=== PATIENT | female | born 1995 | race Caucasian/White ===

== ENCOUNTER 2017-06-28 10:52 | Inpatient (IN) ==
[2017-06-28 11:32] LABS: Basophils % 0.3 %; Eosinophils # 0.1 K/mcL (0.0-0.6); Eosinophils % 0.9 %; Hematocrit 32.4 % (35.3-44.9); Immature Granulocytes % 0.8 % (0-4); Lymphocytes # 1.8 K/mcL (0.6-4.6); Lymphocytes % 14.9 %; Mean Corpuscular Hemoglobin 30.6 pg (28.0-33.3); Mean Platelet Volume 9.2 fL (9.4-12.4); Monocytes # 0.7 K/mcL (0.0-1.3); Monocytes % 5.5 %; Neutrophils # 9.3 K/mcL (1.6-8.9); Platelet Count 280 K/mcL (140-400); Segmented Neutrophils % 77.6 %
[2017-06-28 11:47] LABS: Alanine Aminotransferase 18 Units/L (0-55); Aspartate Amino Transferase 22 Units/L (5-34); BUN/Creatinine Ratio 6 (6-26); Lactate Dehydrogenase 207 Units/L (159-327); Uric Acid 3.9 mg/dL (2.6-6.0); eGFR For African Americans > 60 (> 60); eGFR For Non-African Americans > 60 (> 60)
--- NOTE | 2017-06-28 11:48 | OB/GYN History & Physical ---
Date of Encounter: 06/28/17 Time of Encounter: 11:29 Assessment and Plan (1) 38 weeks gestation of Current visit: Yes Status: Acute (2) Elevated blood pressure affecting in third trimester, antepartum Current visit: Yes Status: Acute Repeat BP at 153/108. Gestational HTN vs. Preeclampsia. Discussed with Dr. Alvarenga Patient will be admitted for induction of labor, Dr. Alvarenga states do not treat elevated BP at this time due to not being in severe range. . - PIH labs - Protein/creatinine ratio - UDS - UA - clear liquids Induction with cytotec PO and pagan balloon, Epidural as desired Anticipate (3) Decreased movement during Current visit: Yes Status: Acute tracing reactive baseline 140/ moderate/+accels/-decels Qualifiers: Fetus number: single or unspecified fetus Trimester: third trimester Qualified Code(s): O36.8130 - Decreased movements, third trimester, not applicable or unspecified History of Present Illness Chief complaint: Elevated blood pressure HPI: Ms. Jain is a 22 year old female at 38 2/7 weeks gestation with a PMH of THC use during and asthma that presents for elevated BP. Patient had a BP of 158/118 at clinic earlier today. She denies any WETZEL or vision changes. She says that she hasn't been able to feel her fetus move well for the past 2 days. She denies any vaginal fluid leakage or bleeding. She denies any regular contractions but she notes that she has been having bilateral lower back pain for the past 2 days. She rates the pain as a 5/10 on the pain scale and describes it as intermittent. She also admits to epigastric pain for the past 2 weeks that last for 3 minutes, not positionally related, non-radiating, and pressure like in quality. She says the pain is worse when she takes deep breaths. She currently admits to nausea but denies any vomiting. She denies any fever, chills, dysuria, or diarrhea . Complains of RUQ tenderness with palpation GBS: negative HepBSAg: non-reactive (12/30/16) HIV Ag/Ab: non-reactive T. Pallidum Ab: negative Rubella Ab: positive Varicella Ab: positive Blood Type: A+ All other labs normal. Past Med Surg Social Fam HX - Past Medical History Medical history: non-contributory - Social History Smoking Status: Never smoker Smokeless Tobacco Status: No Alcohol use: none Obstetrical History - Pregnancies : 1 Para: 0 Term: 0 : 0 Ab's: 0 Livin Medications and Allergies Tiki-D 24 Hour Tablet 11/09/16 [History] Valacyclovir HCl [Valtrex] 1,000 mg PO Q12H #20 tab 11/09/16 [Rx] Promethazine 06/13/17 [History] 3 Allergy/AdvReac Type Severity Reaction Status Date / Time nitrofurantoin Allergy Gastrointestinal Verified 06/13/17 11:47 [From Macrobid] Upset doxacicyln Allergy Rash Uncoded 11/09/16 15:01 Exam - Vital Signs Vital signs: BP: 153/108 HR: 99 FHR: 138 [place]: 33 - Constitutional Constitutional: well developed, well nourished, no acute distress, average body habitus - Neck Neck exam: full ROM - Lungs Respiratory exam: CTAB, wheezes (wheezes clear with cough. ) - Cardiovascular Cardiovascular exam: RRR, +S1, +S2 - Abdomen Abdomen: Present: bowel sounds normal, gravid Abdomen detail: right upper quadrant: tenderness, right lower quadrant: tenderness - Extremities Extremities exam: full ROM, normal capillary refill, normal inspection, radial pulses palpable and symmetrical Deep Tendon Reflex Grade: 2+ Normal - Cervix Dilation: 1 - Comments Comments: Pedal pulses intact and symmetrical bilaterally. Results Result Diagrams: 06/28/17 11:23 06/28/17 11:23 Abnormal lab results WBC 12.0 K/mcL (4.3-11.1) H 06/28/17 11:23 RBC 3.60 M/mcL (3.82-4.97) L 06/28/17 11:23 Hgb 11.0 g/dL (11.5-15.4) L 06/28/17 11:23 Hct 32.4 % (35.3-44.9) L 06/28/17 11:23 MPV 9.2 fL (9.4-12.4) L 06/28/17 11:23 Neutrophils # 9.3 K/mcL (1.6-8.9) H 06/28/17 11:23 All other labs normal. - VTE Reasons for not Prescribing Prophylaxis: Treatment not Indicated - Low risk for VTE
[2017-06-28 11:49] LABS: Blood Urea Nitrogen 4 mg/dL (7-20)
[2017-06-28] MEDS ORDERED: miSOPROStol 25 MCG TABLET PO PRN (11:58)
[2017-06-28 12:20] LABS: Protein/Creatinine Ratio,Urine 0.22 mg/mg (0-0.20)
[2017-06-28 12:21] LABS: Amphetamine Screen,Urine Negative ng/mL (Cutoff=1000); Barbiturate Screen,Urine Negative ng/mL (Cutoff=200); Benzodiazepines Screen,Urine Negative ng/mL (Cutoff=200); Cannabinoid Screen,Urine Positive ng/mL (Cutoff = 50); Cocaine Screen,Urine Negative ng/mL (Cutoff= 300); Opiate Screen,Urine Negative ng/mL (Cutoff=300); Phencyclidine Screen,Urine Negative ng/mL (Cutoff=25)
[2017-06-28] MEDS ORDERED: Naloxone 0.4 MG/ML INJ IVP PRN (12:41)
[2017-06-28] MEDS ORDERED: Famotidine 20 MG/2 ML VIAL IVP PRN (12:41)
[2017-06-28] MEDS ORDERED: Ondansetron 4 MG/2 ML VIAL IVP PRN (12:41)
[2017-06-28] MEDS ORDERED: Ringers Solution, Lactated 1,000 ML IVC SCH (12:45)
--- NOTE | 2017-06-28 14:47 | OB Labor Progress Note ---
Date of Encounter: 06/28/17 Time of Encounter: 14:44 Labor Progress Note - Vital Signs Vital Signs: Last BP 148/75 - Heart Tones Heart Tones: 130/moderate/+accels/-decels - [place]: Pt states feels cramping, irritability traced - Plan Plan: Continue current management BP stable PIH labs negative Anticipate
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
[2017-06-28] MEDS ORDERED: Epidural Premix (fent/bupiv) 110 ML EP ONE (16:13)
[2017-06-28] MEDS: *HR* Nalbuphine 20 MG/ML AMPUL IVP PRN ×2 (17:30→19:58)
--- NOTE | 2017-06-28 20:03 | OB Labor Progress Note ---
Date of Encounter: 06/28/17 Time of Encounter: 19:59 Labor Progress Note - Subjective Subjective: 143/81 - Vital Signs Vital Signs: 143/81 - Cervix Cervix: 5/75/ per RN - Heart Tones Heart Tones: 120/moderate/no accels/no decels - [place]: q1-2 - Interventions Interventions: iUPC placed without difficulty nubain. desires epidural - Plan Plan: Obtain epidrual Start pitocin per policy Anticpate
[2017-06-28] MEDS ORDERED: EPHEDrine 50 MG/ML VIAL ONE (21:24)
--- NOTE | 2017-06-28 21:38 | Anesthesia Procedures ---
Date of Encounter: 06/28/17 Time of Encounter: 21:09 Procedures: Anesthesia - Epidural/Spinal Patient ID/Chart reviewed: Yes Patient examined: Yes OB Eval: Gestational age: term OB Eval: : 1 OB Eval: Dilated at (cm): 5 OB Eval: Contractions: Non-stressed pattern Consent Obtained: Yes Supplemental Oxygen: None/Room Air Site Prep: Aseptic Technique, Sterile prep and drape, 0.5% Chlorhexidine/Alcohol Patient position: upright Local Anesthetic: Lidocaine 1% Amount of Local Anesthetic used: 2 Touhy Needle Gauge: 18 Touhy Needle Depth (cm): 7 Catheter Depth at Skin (cm): 11 Test Dose (1.5% Lido + Epi): Volume given (mls): 3 Test Dose Result: Negative Loading Dose: Other: 10ml from solution Loading Dose Administered: Thru Catheter Infusion Med: 0.125% Bupivacaine w/ 2 mcg/ml Fentanyl Infusion Rate (mls/hr): [address]: Tegaderm, Tape Interspace Used: L3-L4 Loss of Resistance (SOLO): Yes (saline) Blood: Yes (at skin...held pressure for 1 min, stopped ) CSF: No Paresthesia: No Procedure: vss though procedure, mild hypotension treated with 100mcg BERTA IV. OB staff at , turning patient IV bolus being given.
--- NOTE | 2017-06-28 22:58 | OB Labor Progress Note ---
Date of Encounter: 06/28/17 Time of Encounter: 22:57 Labor Progress Note - Subjective Subjective: Pt states epidural is taking away most of contraction pain, just used PCEA button for extra relief - Vital Signs Vital Signs: 145/81 - Cervix Cervix: 5/90/-1 - Heart Tones Heart Tones: 135/moderate/+accels/-decels - Roff Roff: IUPC 1-3 inadequate - Interventions Interventions: repositioned to right side with peanut ball - Plan Plan: Start pitocin and increase per policy Frequent repositioning with peanut ball Anticipate
[2017-06-28] MEDS ORDERED: Oxytocin 20 units/ LR 1000 mL 20 UNIT/1,000 ML BAG IVC SCH (23:15)
[2017-06-29] MEDS ORDERED: ROPIVACAINE HCL/PF 0.5% 30 ML VIAL ONE (00:28)
[2017-06-29] MEDS ORDERED: Epidural Premix (fent/bupiv) 110 ML EP ONE (05:16)
--- NOTE | 2017-06-29 05:24 | OB Labor Progress Note ---
Date of Encounter: 06/29/17 Time of Encounter: 05:22 Labor Progress Note - Subjective Subjective: Pt feeling some discomfort despite epidural, but states pain is improved since pagan removal - Vital Signs Vital Signs: 146/79 - Cervix Cervix: Last VE by RN 8cm - Heart Tones Heart Tones: 130/moderate/-accels/-decels - [place]: 2-4 - Plan Plan: Frequent repositioning st. cath as needed for bladder management Anticipate
[2017-06-29] MEDS ORDERED: Lidocaine 1% 20 ML MDV ONE (06:04)
[2017-06-29] MEDS ORDERED: *HR* FentaNYL (PF) 100 MCG/2 ML VIAL ONE (07:13)
--- NOTE | 2017-06-29 09:44 | OB/GYN Procedure Note ---
Delivery - Delivery Date: 06/29/17 Provider: Aline Man (Gemini Markham RN) Intrapartum events: none Delivery induction: AROM, oxytocin, pagan, misoprostol Delivery monitor: external FHT, external uterine Anesthesia: local, epidural Estimated Blood Loss: 200 - Infant (s) A Infant Delivery Date: 06/29/17 Infant Delivery Time: 08:59 Presentation: vertex Position: LULA Route of delivery: Gender: Male Viability: Viable Pounds: 7 Ounces: 4 Weight Gram: 3.3 kg at 1 minute: 8 at 5 mins: 9 Shoulder Dystocia: not encountered Specimens collected: cord blood Placenta: spontaneous Cord: 3 umbilical vessels - Repair Episiotomy: none Laceration Description: Periurethral (Repaired with 3-0 Vicryl) - Complications Delivery complications: none Delivery comments: Called to room to examine cervix. Patient found to be complete and +2 station. Initiated pushing with good maternal pushing effort. Under maternal effort, spontaneous vaginal delivery of viable male infant over intact perineum. to maternal abdomen for drying and stimulation. Cord clamped and cut after pulsaton ceased. Right periurethral laceration noted, repaired with 3-0 Vicryl. Spontaneous delivery of intact placenta. EBL 200 mL. No nuchal cord, shoulder dystocia or meconium encountered. Mother and infant stable for 2 hour recovery. - Disposition Mom disposition: stable in LDR [place] disposition: stable in LDR
[2017-06-29] MEDS ORDERED: Oxytocin 20 units/ LR 1000 mL 20 UNIT/1,000 ML BAG IVC SCH (10:30)
[2017-06-29] MEDS ORDERED: Benzocaine/Menthol 56 GM AEROSOL SPRAY TP PRN (10:30)
[2017-06-29] MEDS ORDERED: Lanolin 7 G OINT...G. TP PRN (10:30)
[2017-06-29] MEDS ORDERED: Acetaminophen 325 MG TABLET PO PRN (10:30)
[2017-06-29] MEDS: Ibuprofen 600 MG TABLET PO PRN ×2 (10:52→17:22)
[2017-06-30] MEDS: Ibuprofen 600 MG TABLET PO PRN ×2 (04:21→11:29)
[2017-06-30 08:07] VITALS: BP 127/76
--- NOTE | 2017-06-30 08:38 | Discharge Summary ---
Date of Encounter: 06/30/17 Time of Encounter: 08:15 - Discharge Diagnosis (1) 38 weeks gestation of Priority: Primary Status: Resolved (2) Elevated blood pressure affecting in third trimester, antepartum Priority: Primary Status: Resolved - Discharge Medications Prescriptions: Ibuprofen [Motrin] 600 mg PO Q6HR PRN #60 tablet PRN Reason: Cramping Docusate [Colace] 100 mg PO BID #30 capsule Vit/FA 1 each PO DAILY #30 tablet Home Medications: Tiki-D 24 Hour Tablet 11/09/16 [History] Promethazine 06/13/17 [History] Docusate [Colace] 100 mg PO BID #30 capsule 06/30/17 [Rx] Ibuprofen [Motrin] 600 mg PO Q6HR PRN #60 tablet 06/30/17 [Rx] Vit/FA 1 each PO DAILY #30 tablet 06/30/17 [Rx] Allergies/Adverse Reactions: 3 Allergy/AdvReac Type Severity Reaction Status Date / Time nitrofurantoin Allergy Gastrointestinal Verified 06/13/17 11:47 [From Macrobid] Upset doxacicyln Allergy Rash Uncoded 11/09/16 15:01 Data Procedures and tests throughout hospitalization: Laboratory Tests 06/28/17 06/28/17 06/28/17 11:23 11:23 12:00 WBC 12.0 H RBC 3.60 L Hgb 11.0 L Hct 32.4 L MCV 90.0 MCH 30.6 MCHC 34.0 RDW 12.0 Plt Count 280 MPV 9.2 L Immature Gran % 0.8 Seg Neutrophils % 77.6 Lymphocytes % 14.9 Monocytes % 5.5 Eosinophils % 0.9 Basophils % 0.3 Neutrophils # 9.3 H Lymphocytes # 1.8 Monocytes # 0.7 Eosinophils # 0.1 Basophils # 0.0 BUN 4 L Creatinine 0.65 Est GFR ( Amer) > 60 Est GFR (Non-Af Amer) > 60 BUN/Creatinine Ratio 6 Uric Acid 3.9 AST 22 ALT 18 Lactate Dehydrogenase 207 Urine Creatinine Protein/Creatinin Ratio Urine Total Protein Urine Opiates Screen Negative Ur Barbiturates Screen Negative Ur Phencyclidine Scrn Negative Ur Amphetamines Screen Negative U Benzodiazepines Scrn Negative Urine Cocaine Screen Negative U Marijuana (THC) Screen Positive H 06/28/17 12:00 WBC RBC Hgb Hct MCV MCH MCHC RDW Plt Count MPV Immature Gran % Seg Neutrophils % Lymphocytes % Monocytes % Eosinophils % Basophils % Neutrophils # Lymphocytes # Monocytes # Eosinophils # Basophils # BUN Creatinine Est GFR ( Amer) Est GFR (Non-Af Amer) BUN/Creatinine Ratio Uric Acid AST ALT Lactate Dehydrogenase Urine Creatinine 74 Protein/Creatinin Ratio 0.22 H Urine Total Protein 16 H Urine Opiates Screen Ur Barbiturates Screen Ur Phencyclidine Scrn Ur Amphetamines Screen U Benzodiazepines Scrn Urine Cocaine Screen U Marijuana (THC) Screen Date of admission: 06/28/17 16:09 Primary care physician: PCP NONE Consults: 06/29/17 10:30 Consult to Honing Machine Set Up Operator [CONS] Routine Comment: Vaginal delivery, consult needed Consult to Food Dehydrator Operator [CONS] Routine Reason for SW Consult: THC positive Discharging clinician: Que Souza Anticipated date of discharge: 06/30/17 - Patient Status Disposition: Home, Self-Care Condition: Good Functional capacity at discharge: independent ambulation Overall status at discharge: patient is progressing back to baseline - Discharge Instructions - Diet and Activity Activity: resume usual activities as tolerated Diet: regular diet Hospital Course Reason for admission: other (Gestational HTN ) Delivery: Episiotomy: none Laceration: other (Periurethral laceration) Other procedures: none Discharge diagnosis: IUP at term delivered baby: male Hospital course: Ms. Jain is a 22 year old female that presented at 38 2/7 weeks gestation with a PMH of THC use during and asthma for elevated BP. Patient had a BP of 158/118 at clinic on the day of her admission. She denied any WETZEL or vision changes. She says that she hadn't been able to feel her fetus move well for the past 2 days. She denied any vaginal fluid leakage or bleeding. She denied any regular contractions. Patient was admitted for induction due to repeated elevated BP. Patient found to be complete and +2 station. Initiated pushing with good maternal pushing effort. Under maternal effort, spontaneous vaginal delivery of viable male infant over intact perineum. to maternal abdomen for drying and stimulation. Cord clamped and cut after pulsaton ceased. Right periurethral laceration noted, repaired with 3-0 Vicryl. Spontaneous delivery of intact placenta. EBL 200 mL. No nuchal cord, shoulder dystocia or meconium encountered. When seen today, patient says that she is doing well and in good mood. Her baby is doing well and she has been breast feeding him. She says she has good appetite. She has not had a bowel movement yet, but she has been passing gas and has been able to void. She has been ambulating well by herself as well. He abdominal cramping has been minimal. Her vaginal bleeding has been moderate to light and has been improving since the delivery. She denies any headaches, vision changes, chest pain, shortness of breath, nausea, or vomiting. Her blood pressure has stabilized to normotensive range since the delivery. She has a follow-up appointment with Dr. Rowland on 07/31/17. Delivery - Delivery Date: 06/29/17 Provider: Aline Man (Gemini Markham RN) Intrapartum events: none Delivery induction: AROM, oxytocin, pagan, misoprostol Delivery monitor: external FHT, external uterine Anesthesia: local, epidural Estimated Blood Loss: 200 - (s) Infant A Delivery Date: 06/29/17 Infant Delivery Time: 08:59 Presentation: vertex Position: LULA Route of delivery: Gender: Male Viability: Viable Pounds: 7 Ounces: 4 Weight Gram: 3.3 kg at 1 minute: 8 at 5 mins: 9 Shoulder Dystocia: not encountered Specimens collected: cord blood Placenta: spontaneous Cord: 3 umbilical vessels - Repair Episiotomy: none Laceration Description: Periurethral (Repaired with 3-0 Vicryl) - Complications Delivery complications: none Time Attestation: Total time spent providing and/or coordinating discharge services: Time Spent: Less than 30 minutes Exam - Constitutional Vitals: Temp Pulse Resp BP Pulse Ox 98.2 F 74 16 127/76 97 06/30/17 07:40 06/30/17 07:40 06/30/17 07:40 06/30/17 07:40 06/29/17 20:18 General appearance IM: A&O X 3, no acute distress, answers questions appropriately - Respiratory Respiratory exam: Present: CTAB - Cardiovascular Cardiovascular exam IM: Present: RRR, +S1, +S2 - GI/Abdominal GI/Abdominal exam IM: normal bowel sounds, soft - Uterine Tone: Firm - Extremities Exam Extremities exam IM: Present: full ROM, normal capillary refill, normal inspection, radial pulses palpable and symmetrical. Absent: pedal edema - Neurological Exam Neurological exam: reflexes normal Additional comments: Neuro: DTRs +2/4 in upper and lower extremities bilaterally. - Attending Attestation I examined this patient and my medical decision-making was reviewed with the Resident Physician. I agree with the documented findings, disposition and treatment plan as described except to the extent set forth below. NANETTE Sharpe
[2017-06-30] MEDS ORDERED: Prenatal Vit/FA 1 EACH TABLET PO SCH (09:00)
== END 2017-06-30 12:55 | disposition home or self-care (01) | DRG 560 ==
LOC: 1NENULAB → OBSVTOIN 10:52 → INTOOBSV 10:52 → 1NENUOBS 06-29 12:08
PROVIDERS: ADMIT Student in an Organized Health Care Education/Training Program; ATTEND Student in an Organized Health Care Education/Training Program

== ENCOUNTER 2022-03-21 09:07 | Observation (INO) ==
[2022-03-21] MEDS ORDERED: Ringers Solution, Lactated 1,000 ML IVC ONE (09:15)
[2022-03-21] MEDS ORDERED: Ringers Solution, Lactated 1,000 ML IVC SCH (09:15)
[2022-03-21] MEDS ORDERED: Metoclopramide 10 MG/2 ML VIAL IVP ONE (09:17)
[2022-03-21] MEDS ORDERED: Famotidine 20 MG/2 ML VIAL IVP ONE (09:18)
[2022-03-21] MEDS ORDERED: CeFAZolin 2,000 MG/120 ML BAG IVPB ONE (10:00)
[2022-03-21 10:10] LABS: White Blood Count 7.9 K/mcL (4.3-11.1)
[2022-03-21 10:11] LABS: Basophils % 0.3 %; Eosinophils # 0.1 K/mcL (0.0-0.6); Eosinophils % 0.6 %; Hematocrit 37.1 % (35.3-44.9); Hemoglobin 12.3 g/dL (11.5-15.4); Immature Granulocytes % 0.4 % (0-4); Lymphocytes # 1.2 K/mcL (0.6-4.6); Lymphocytes % 14.8 %; Mean Corpuscular HGB Conc 33.2 g/dL (31.6-35.5); Mean Corpuscular Hemoglobin 31.1 pg (28.0-33.3); Mean Corpuscular Volume 93.9 fL (83.0-100.0); Mean Platelet Volume 8.4 fL (9.4-12.4); Monocytes # 0.4 K/mcL (0.0-1.3); Monocytes % 5.2 %; Neutrophils # 6.2 K/mcL (1.6-8.9); Platelet Count 254 K/mcL (140-400); Red Blood Count 3.95 M/mcL (3.82-4.97); Red Cell Distribution Width 11.7 % (11.5-14.5); Segmented Neutrophils % 78.7 %
[2022-03-21] MEDS ORDERED: *HR* Midazolam HCl 2 MG/2 ML VIAL ONE (11:03)
[2022-03-21] MEDS ORDERED: *HR* Propofol 200 MG/20 ML VIAL IVP ONE (11:04)
[2022-03-21] MEDS ORDERED: *HR* FentaNYL (PF) 100 MCG/2 ML VIAL ONE (11:04)
[2022-03-21] MEDS ORDERED: Lidocaine -MPF 2% 2 ML VIAL ONE (11:36)
[2022-03-21] MEDS ORDERED: Ketorolac 30 MG/ML VIAL ONE (11:45)
[2022-03-21] MEDS ORDERED: Ibuprofen 400 MG TABLET PO PRN (11:58)
[2022-03-21] MEDS ORDERED: Ondansetron 4 MG/2 ML VIAL IVP PRN (11:59)
[2022-03-21 13:36] LABS: Bilirubin,Urine Negative (Negative); Blood,Urine Negative (Negative); Clarity,Urine Clear (Clear); Color,Urine Yellow (Yellow); Glucose,Urine (UA) Normal (Normal); Ketones,Urine Negative (Negative); Leukocyte Esterase,Urine Negative (Negative); Nitrite,Urine Negative (Negative); Protein,Urine Negative (Neg-Trace); Specific Gravity,Urine 1.025 (1.010-1.025); Urobilinogen,Urine Normal (Normal)
[2022-03-21 13:42] VITALS: BP 115/72; PULSE 64; TEMP 98; O2SAT 97
== END 2022-03-21 14:41 | disposition home or self-care (01) | DRG 543 ==
LOC: 1NENULAB 09:07 → INTOOBSV 09:07 → EDSTATUS 12:00
PROVIDERS: ADMIT Obstetrics & Gynecology; ATTEND Obstetrics & Gynecology

== ENCOUNTER 2022-04-26 12:00 | Observation (INO) ==
[2022-04-26 11:37] LABS: Basophils % 0.5 %; Eosinophils # 0.1 K/mcL (0.0-0.6); Hematocrit 38.1 % (35.3-44.9); Hemoglobin 12.3 g/dL (11.5-15.4); Immature Granulocytes % 0.3 % (0-4); Lymphocytes # 1.3 K/mcL (0.6-4.6); Lymphocytes % 21.3 %; Mean Corpuscular HGB Conc 32.3 g/dL (31.6-35.5); Mean Corpuscular Hemoglobin 31.6 pg (28.0-33.3); Mean Corpuscular Volume 97.9 fL (83.0-100.0); Mean Platelet Volume 8.4 fL (9.4-12.4); Monocytes # 0.4 K/mcL (0.0-1.3); Monocytes % 7.1 %; Neutrophils # 4.2 K/mcL (1.6-8.9); Platelet Count 279 K/mcL (140-400); Red Blood Count 3.89 M/mcL (3.82-4.97); Red Cell Distribution Width 12.4 % (11.5-14.5); Segmented Neutrophils % 68.8 %; White Blood Count 6.1 K/mcL (4.3-11.1)
[~2022-04-26 12:00] MED LIST: *HR* FentaNYL (PF) 100 MCG/2 ML VIAL ONE; *HR* HYDROmorphone PF 0.5 MG/0.5 ML SYRINGE IVP PRN; *HR* Midazolam HCl 2 MG/2 ML VIAL ONE; *HR* OxyCODONE Immed Rel 5 MG TABLET PO PRN; *HR* Propofol 200 MG/20 ML VIAL IVP ONE; CeFAZolin 2,000 MG/120 ML BAG IVPB ONE; Lidocaine -MPF 2% 2 ML VIAL ONE; Ondansetron 4 MG/2 ML VIAL IVP PRN; Ringers Solution, Lactated 1,000 ML IVC SCH
[2022-04-26] MEDS ORDERED: Ondansetron 4 MG/2 ML VIAL ONE (12:19)
[2022-04-26] MEDS ORDERED: Ketorolac 30 MG/ML VIAL ONE (12:24)
[2022-04-26] MEDS ORDERED: Acetaminophen IV 1,000 MG/100 ML BAG IVPB ONE (12:25)
[2022-04-26] MEDS ORDERED: *HR* HYDROcodone/Acet 5/325 mg TABLET PO PRN (12:47)
[2022-04-26] MEDS ORDERED: Ibuprofen 800 MG TABLET PO PRN (12:48)
[2022-04-26 14:16] VITALS: TEMP 97.9
[2022-04-26] MEDS ORDERED: Ibuprofen 400 MG TABLET PO PRN (15:00)
[2022-04-26 15:13] VITALS: BP 106/63; PULSE 60; O2SAT 97
[2022-04-26] MEDS ORDERED: Methylergonovine 0.2 MG/ML AMPUL IM ONE (15:29)
== END 2022-04-26 15:30 | disposition home or self-care (01) ==
LOC: 1NENULAB → EDSTATUS 15:20
PROVIDERS: ADMIT Obstetrics & Gynecology; ATTEND Obstetrics & Gynecology